=== PATIENT | male | born 1990 | race African-American/Black ===

== ENCOUNTER 2016-09-27 17:16 | Emergency (ER) | payer MEDICAID ==
[~2016-09-27] VITALS: Ht 172.7 cm; Wt 58.2 kg
[2016-09-27 17:17] VITALS: BP 118/69
== END 2016-09-27 17:37 | disposition home or self-care (01) ==
LOC: ED 17:25
DX: S01.01XD Laceration without foreign body of scalp, subsequent encounter (principal); X58.XXXD Exposure to other specified factors, subsequent encounter; Y92.89 Other specified places as the place of occurrence of the external cause; Y99.8 Other external cause status
CPT/HCPCS: 99281